=== PATIENT | male | born 1950 | race American Indian/Alaskan Native ===

== ENCOUNTER 2021-09-30 18:58 | Emergency (ER) | payer MEDICARE ==
[2021-09-30] MEDS ORDERED: SODIUM CHLORIDE 0.9% 1000 ML 1,000 ML IV ONE (20:33)
--- NOTE | 2021-09-30 20:40 | Emergency Department Report ---
ED Dizziness HPI - General Chief Complaint: Dizziness Stated Complaint: DIZZY Time Seen by Provider: 09/30/21 20:32 Source: patient, EMS Mode of arrival: Stretcher Limitations: No Limitations - History of Present Illness Initial Comments: Patient is 71-year-old male who presents emergency room with complaints of dizziness. Patient is visiting on for 1 week. Patient dates his dizziness becoming more frequent. Patient states just prior to arrival the dizziness got so bad that the room was spinning and he was having difficulty walking and had to sit down. Patient states he had severe generalized weakness that lasted until he sat down. Patient states that he was brought in by EMS. Patient states his dizziness is better with rest and laying flat. Patient states that his dizziness is worse with movement. Patient has complaints of lightheade dness. Patient states he has not had very much food or water over the last 24 hours. Patient states he has not felt like drinking water. Patient denies chest pain or shortness of breath. Patient denies syncope. Patient denies hitting his head. Patient denies loss of consciousness. Patient denies trauma. Patient denies recent travel. Patient denies recent international travel. Patient denies exposure to the novel coronavirus. Patient denies sick contacts. Patient denies fever and chills. Patient denies cough. Patient denies diarrhea. Patient denies coming in contact with anybody with symptoms of the novel coronavirus. Complaint: dizziness, lightheadedness, difficulty walking -: Sudden Timing: gradual onset Description: "room spinning", lightheadedness, off-balance History of Same: No History of Trauma: No Severity: severe Improves With: rest Worsens With: movement Associated Symptoms: weakness. denies: ataxia, chest pain, confusion, cough, diaphoresis, fever/chills, loss of appetite, malaise, rash, seizure, shortness of breath, syncope - Related Data Allergies Allergy/AdvReac Type Severity Reaction Status Date / Time albuterol Allergy Shortness Verified 09/30/21 20:02 of Breath ED Review of Systems ROS: Stated complaint: DIZZY Other details as noted in HPI Constitutional: denies: chills, fever Eyes: denies: eye pain, eye discharge, vision change ENT: denies: ear pain, throat pain Respiratory: denies: cough, shortness of breath, wheezing Cardiovascular: denies: chest pain, palpitations Endocrine: no symptoms reported Gastrointestinal: denies: abdominal pain, nausea, diarrhea Genitourinary: denies: urgency, dysuria Musculoskeletal: denies: back pain, joint swelling, arthralgia Skin: denies: rash, lesions Neurological: as per HPI, weakness. denies: headache, paresthesias Psychiatric: denies: anxiety, depression Hematological/Lymphatic: denies: easy bleeding, easy bruising ED Past Medical Hx - Past Medical History Previous Medical History?: Yes Hx Hypertension: Yes Hx Diabetes: Yes Hx Asthma: Yes Additional medical history: PAD. Elevated Cholesterol. DVT - Surgical History Past Surgical History?: Yes Hx Pacemaker: Yes Additional Surgical History: Arterial surgery Bilateral legs - Family History Family history: no significant - Social History Smoking Status: Never Smoker Substance Use Type: None ED Physical Exam - General Limitations: No Limitations General appearance: alert, in no apparent distress - Head Head exam: Present: atraumatic, normocephalic - Eye Eye exam: Present: normal appearance - ENT ENT exam: Present: mucous membranes moist - Neck Neck exam: Present: normal inspection - Respiratory Respiratory exam: Present: normal lung sounds bilaterally. Absent: respiratory distress - Cardiovascular Cardiovascular Exam: Present: regular rate, normal rhythm. Absent: systolic murmur, diastolic murmur, rubs, gallop - GI/Abdominal GI/Abdominal exam: Present: soft, normal bowel sounds - Rectal Rectal exam: Present: deferred - Extremities Exam Extremities exam: Present: normal inspection - Back Exam Back exam: Present: normal inspection - Neurological Exam Neurological exam: Present: alert, oriented X3 - Psychiatric Psychiatric exam: Present: normal affect, normal mood - Skin Skin exam: Present: warm, dry, intact, normal color. Absent: rash ED Course Vital Signs 09/30/21 09/30/21 09/30/21 20:02 20:30 20:46 Temperature 98 F Pulse Rate 90 85 84 Respiratory 18 17 17 Rate Blood Pressure 128/76 181/77 174/76 Blood Pressure 181/77 [Right] O2 Sat by Pulse 96 100 96 Oximetry 09/30/21 09/30/21 09/30/21 21:00 21:16 21:30 Temperature Pulse Rate 84 85 84 Respiratory 13 16 19 Rate Blood Pressure 174/76 174/76 174/76 Blood Pressure [Right] O2 Sat by Pulse 98 97 Oximetry 09/30/21 09/30/21 21:46 22:00 Temperature Pulse Rate 82 82 Respiratory 17 15 Rate Blood Pressure 166/82 174/82 Blood Pressure [Right] O2 Sat by Pulse 97 97 Oximetry - Reevaluation(s) Reevaluation #1: Patient states he is feeling better. Patient denies dizziness. 09/30/21 22:15 Reevaluation #2: Patient ambulatory and patient is asymptomatic while ambulating. I discussed all results and clinical findings with patient. I discussed plan of care with patient. Patient agrees with plan of care. Patient is stable for discharge. Patient will be discharged home. Patient given discharge instructions. Patient voiced understanding of discharge instructions. 09/30/21 22:29 ED Medical Decision Making - Lab Data Result diagrams: 09/30/21 20:40 09/30/21 20:40 - EKG Data -: EKG Interpreted by Me EKG shows normal: sinus rhythm, axis, intervals, QRS complexes, ST-T waves Rate: normal - Radiology Data Radiology results: report reviewed, image reviewed interpreted by me: Chest x-ray: No pneumonia, no pneumothorax, AICD noted., no osseous findings, no acute findings CHEST 1 VIEW 09/30/2021 8:43 PM INDICATION / CLINICAL INFORMATION: Lightheadedness/Dizziness. COMPARISON: None available. FINDINGS: SUPPORT DEVICES: None. HEART / MEDIASTINUM: Heart is normal size. Left-sided dual-lead AICD in expected position. LUNGS / PLEURA: No significant pulmonary or pleural abnormality. No pneumothorax. ADDITIONAL FINDINGS: No significant additional findings. IMPRESSION: 1. No acute findings. NONENHANCED CT SCAN OF THE HEAD: INDICATION / CLINICAL INFORMATION: 71 years Male; Lightheadedness/Dizziness. TECHNIQUE: Routine CT head without contrast. All CT scans at this location are performed using CT dose reduction for ALARA by means of automated exposure control. COMPARISON: None. FINDINGS: BRAIN / INTRACRANIAL CONTENTS: No acute hemorrhage, mass effect, midline shift, hydrocephalus, or acute, large territorial infarct. No chronic infarct or focal atrophy. Mild cortical involution. Periventricular low-attenuation areas due to chronic small vessel disease CRANIOCERVICAL JUNCTION: No significant abnormality. ORBITS: No significant abnormality of visualized orbits. SINUSES / MASTOIDS: Mucosal thickening in the maxillary sinuses bilaterally, sphenoid sinus, ethmoid air cells and right frontal sinus; sinonasal polyposis in allergic fungal sinusitis are considerations ADDITIONAL FINDINGS: None. IMPRESSION: No acute focal parenchymal lesion in the brain - Medical Decision Making Patient is a 71-year-old male that presents emergency room with complaints of dizziness and lightheaded. Patient states symptoms are worsening. Patient st ates his dizziness and lightheadedness got too bad a few room was spinning and he became weak and needed to sit down. Patient denies fall. Patient denies head trauma. Patient had a head CT which was negative for acute findings. Patient had a chest x-ray which was negative for acute findings. Patient initially found to have elevated blood pressure. Patient's blood pressure improved on its own. Patient is compliant with his blood pressure medications. Patient given IV fluids and his symptoms resolved. Patient also given p.o. challenge and p.o. fluids and the patient was tolerating p.o. intake. Patient ambulatory in the ER. Patient asymptomatic while ambulating. Patient had labs done which were essentially unremarkable. Patient had an EKG done which was negative for acute finding. I personally reviewed EKG and chest x-ray. Patient does not require any further emergency medical services. Patient has an appointment with his primary care on Sunday. Patient does not require inpatient services. Patient is stable for discharge. Patient will be discharged home. - Differential Diagnosis Dizziness, weakness, electrolyte imbalance, dehydration Critical care attestation.: If time is entered above; I have spent that time in minutes in the direct care of this critically ill patient, excluding procedure time. ED Disposition Clinical Impression: Dizziness, Weakness, Lightheadedness, Dehydration Disposition: HOME / SELF CARE / HOMELESS Is pt being admited?: No Does the pt Need Aspirin: No Condition: Stable Instructions: Weakness, Dizziness Additional Instructions: Patient to follow-up with primary care in 2 to 3 days. Patient to follow-up with neurologist in 2 to 3 days. Patient to rest. Patient to increase water. Patient to avoid strenuous exercise or heavy lifting until cleared by neurologist and primary care. Patient to take Tylenol or ibuprofen as needed for pain. Patient to monitor blood pressure at home. Patient to continue all medications. Patient to keep a blood pressure log. Patient to eat a low-salt and heart healthy diet. Patient to return to the ER if condition worsens, changes or new symptoms arise. Referrals: GEE YANG MD [Primary Care Provider] - 2-3 Days ZULEMA NORTH MD [Staff Physician] - 2-3 Days Time of Disposition: 22:35
[2021-09-30 20:50] LABS: Basophils # (Auto) 0.1 K/mm3 (0.0-0.1); Eosinophils # (Auto) 0.2 K/mm3 (0.0-0.4); Hematocrit 36.2 % (35.5-45.6); Hemoglobin 11.9 gm/dl (11.8-15.2); Lymphocytes # (Auto) 1.1 K/mm3 (1.2-5.4); Lymphocytes % (Auto) 14.2 % (13.4-35.0); Mean Corpuscular HGB Conc 33 % (32-34); Mean Corpuscular Volume 83 fl (84-94); Monocytes # (Auto) 0.8 K/mm3 (0.0-0.8); Monocytes % (Auto) 10.8 % (0.0-7.3); Platelet Count 203 K/mm3 (140-440); Red Blood Count 4.34 M/mm3 (3.65-5.03); Red Cell Distribution Width 15.8 % (13.2-15.2)
[2021-09-30 21:14] LABS: Alanine Aminotransferase 9 units/L (7-56); BUN/Creatinine Ratio 9; Blood Urea Nitrogen 11 mg/dL (9-20); Calcium 9.7 mg/dL (8.4-10.2); Hemolysis Index 6
--- NOTE | 2021-09-30 21:36 | Cat Scan Report ---
NONENHANCED CT SCAN OF THE HEAD: INDICATION / CLINICAL INFORMATION: 71 years Male; Lightheadedness/Dizziness. TECHNIQUE: Routine CT head without contrast. All CT scans at this location are performed using CT dos e reduction for ALARA by means of automated exposure control. COMPARISON: None. FINDINGS: BRAIN / INTRACRANIAL CONTENTS: No acute hemorrhage, mass effect, midline shift, hydrocephalus, or acu te, large territorial infarct. No chronic infarct or focal atrophy. Mild cortical involution. Periven tricular low-attenuation areas due to chronic small vessel disease CRANIOCERVICAL JUNCTION: No significant abnormality. ORBITS: No significant abnormality of visualized orbits. SINUSES / MASTOIDS: Mucosal thickening in the maxillary sinuses bilaterally, sphenoid sinus, ethmoid air cells and right frontal sinus; sinonasal polyposis in allergic fungal sinusitis are consideration s ADDITIONAL FINDINGS: None. IMPRESSION: No acute focal parenchymal lesion in the brain Signer Name: Meredith Watkins MD Signed: 09/30/2021 9:32 PM Workstation Name: [id number]
--- NOTE | 2021-09-30 21:55 | XRay Report ---
CHEST 1 VIEW 09/30/2021 8:43 PM INDICATION / CLINICAL INFORMATION: Lightheadedness/Dizziness. COMPARISON: None available. FINDINGS: SUPPORT DEVICES: None. HEART / MEDIASTINUM: Heart is normal size. Left-sided dual-lead AICD in expected position. LUNGS / PLEURA: No significant pulmonary or pleural abnormality. No pneumothorax. ADDITIONAL FINDINGS: No significant additional findings. IMPRESSION: 1. No acute findings. Signer Name: Musa Lantigua MD Signed: 09/30/2021 9:51 PM Workstation Name: [id number]
[2021-09-30 23:11] VITALS: BP 151/73
--- NOTE | 2021-10-02 21:28 | Electrocardiograph Report ---
[facility] Test Date: 2021-09-30 Test Time: 20:26:30 Pat Name: SONNY ANDINO Department: Room: Gender: M Safety Person: KRISTINA : 1950 Requested By: EMMA SCHAFFER III Order Number: [id number] Reading MD: Ernst Nam Measurements Intervals [place] Rate: 85 P: 61 MO: 173 QRS: 8 QRSD: 108 T: 158 QT: 395 QTc: 469 Interpretive Statements Sinus rhythm Deep T wave inversions consider acute anterolateral ischemia No previous ECG available for comparison Electronically Signed On 10-02-2021 21:27:59 EDT by Ernst Nam
== END 2021-09-30 23:05 | disposition home or self-care (01) ==
LOC: ED 18:58
DX: E86.0 Dehydration (principal); R42 Dizziness and giddiness; R53.1 Weakness; I10 Essential (primary) hypertension; E11.9 Type 2 diabetes mellitus without complications; E78.00 Pure hypercholesterolemia, unspecified; J45.909 Unspecified asthma, uncomplicated; I82.409 Acute embolism and thrombosis of unspecified deep veins of unspecified lower extremity; I73.9 Peripheral vascular disease, unspecified; Z98.890 Other specified postprocedural states; Z88.9 Allergy status to unspecified drugs, medicaments and biological substances
CPT/HCPCS: 36415; 70450; 71045; 80053; 84484; 85025; 93005; 96360; 99285; J7030